=== PATIENT | male | born 1995 | race Caucasian/White ===

== ENCOUNTER 2017-05-28 10:36 | Emergency (ER) | payer SELFPAY ==
[~2017-05-28] VITALS: Ht 172.7 cm; Wt 61.0 kg
[~2017-05-28 10:36] MED LIST: AMOXICILLIN500 MG PO
[2017-05-28] MEDS ORDERED: PENICILLN VK500 MG PO (11:11)
[2017-05-28] MEDS ORDERED: LORTAB 5-325 MG1 TAB PO (11:11)
[2017-05-28 11:20] VITALS: BP 113/67
== END 2017-05-28 11:20 | disposition home or self-care (01) | DRG 159 ==
LOC: ED 10:36
DX: K04.7 Periapical abscess without sinus (principal); F17.210 Nicotine dependence, cigarettes, uncomplicated; K03.81 Cracked tooth